=== PATIENT | male | born 1960 | race Two or more races ===

== ENCOUNTER → 2022-07-18 | Outpatient (CLI) | payer OTHER, MEDICAID | END | disposition home or self-care (01) | LOC: LAB 11:44 | PROVIDERS: ATTEND Internal Medicine Pulmonary Disease | DX: Z01.812 Encounter for preprocedural laboratory examination (principal); Z20.822 Contact with and (suspected) exposure to COVID-19 | CPT/HCPCS: 36415; 87426 ==

== ENCOUNTER → 2022-07-24 | Outpatient (CLI) | payer OTHER, MEDICAID | END | disposition home or self-care (01) | LOC: LAB 09:31 | PROVIDERS: ATTEND Internal Medicine Pulmonary Disease | DX: Z01.812 Encounter for preprocedural laboratory examination (principal); Z20.822 Contact with and (suspected) exposure to COVID-19 | CPT/HCPCS: 36415; 87426 ==

== ENCOUNTER → 2022-07-25 | Outpatient (CLI) | payer OTHER, MEDICAID | END | disposition home or self-care (01) | LOC: RT 09:32 | PROVIDERS: ATTEND Internal Medicine Pulmonary Disease | DX: R06.02 Shortness of breath (principal); R06.00 Dyspnea, unspecified | CPT/HCPCS: 94060; 94727; 94729 ==

== ENCOUNTER 2023-02-18 10:38 | Emergency (ER) | payer OTHER, MEDICAID ==
[~2023-02-18] VITALS: Ht 175.3 cm; Wt 94.3 kg
[2023-02-18] MEDS ORDERED: ONDANSETRON ODT 4 MG TAB PO ONE (14:30)
[2023-02-18] MEDS ORDERED: MORPHINE SULFATE INJ 2 MG/ml SYRG IM ONE (14:30)
[2023-02-18 14:59] VITALS: BP 111/75; PULSE 85; RESP 16; TEMP 97.6; O2SAT 96
== END 2023-02-18 15:07 | disposition home or self-care (01) ==
LOC: ER 10:38
DX: R51.9 Headache, unspecified (principal); M54.2 Cervicalgia; M54.9 Dorsalgia, unspecified; M25.561 Pain in right knee; M79.602 Pain in left arm; M79.601 Pain in right arm; E11.9 Type 2 diabetes mellitus without complications; I10 Essential (primary) hypertension; E78.5 Hyperlipidemia, unspecified; V89.2XXA Person injured in unspecified motor-vehicle accident, traffic, initial encounter; Y93.I9 Activity, other involving external motion; Y92.89 Other specified places as the place of occurrence of the external cause; Y99.8 Other external cause status
CPT/HCPCS: 70450; 71045; 72125; 96372; 99285; J2270; Q0162

== ENCOUNTER 2025-02-01 14:43 | Outpatient (CLI) | payer OTHER, MEDICAID ==
[2025-02-01] MEDS ORDERED: ALBUTEROL SULF 2.5 MG/0.5ML(0.5%) NEB SOLN ONE (15:24)
== END 2025-02-01 17:00 | disposition home or self-care (01) ==
LOC: RT 14:43
PROVIDERS: ATTEND Internal Medicine Pulmonary Disease
DX: J44.9 Chronic obstructive pulmonary disease, unspecified (principal)
CPT/HCPCS: 94060; 94727; 94729